=== PATIENT | female | born 1935 | race Caucasian/White ===

== ENCOUNTER 2024-06-20 19:44 | Inpatient (IN) | payer MEDICARE, OTHER ==
[~2024-06-20] VITALS: Ht 157.5 cm; Wt 61.2 kg
[2024-06-20] MEDS ORDERED: ONDANSETRON HCL/PF 4 MG/2 ML VIAL ONE ×2 (20:07→21:05)
[2024-06-20] MEDS: ONDANSETRON HCL/PF 4 MG/2 ML VIAL IVP ONE (20:15)
[2024-06-20] MEDS: IV NS 0.9% 1,000 ML BAG IV ONE ×2 (20:20→22:00)
[2024-06-20 20:33] LABS: BASOPHILS # (AUTO) 0.1 K/uL (0.0-0.2); BASOPHILS % (AUTO) 0.6 % (0.0-2.0); EOSINOPHILS # (AUTO) 0.1 K/uL (0.0-0.7); EOSINOPHILS % (AUTO) 0.8 % (0.0-6.0); HEMATOCRIT 38 % (33-45); LYMPHOCYTES # (AUTO) 4.9 K/uL (0.8-4.8); LYMPHOCYTES % (AUTO) 30.1 % (20.0-44.0); MEAN CORPUSCULAR HEMOGLOBIN 28 PG (26.0-33.0); MEAN CORPUSCULAR HGB CONC 32 g/dl (31.0-36.0); MEAN CORPUSCULAR VOLUME 88 fL (82-100); NEUTROPHILS # (AUTO) 10.2 K/uL (1.8-8.9); NEUTROPHILS % (AUTO) 62.5 % (43.0-81.0); PLATELET COUNT (AUTO) 264 K/uL (150-450); RED BLOOD CELL COUNT(AUTO) 4.27 MIL/uL (4.0-5.2); WHITE BLOOD COUNT (AUTO) 16.4 K/uL (4.3-11.0)
[2024-06-20 20:48] LABS: ALANINE AMINOTRANSFERASE 22 U/L (12-78); ALBUMIN 3.8 g/dL (3.4-5.0); ALKALINE PHOSPHATASE 47 U/L (46-116); ASPARTATE AMINOTRANSFERASE 23 U/L (15-37); BILIRUBIN,TOTAL 0.3 mg/dL (0.2-1.0); CALCIUM, SERUM 9.6 mg/dL (8.5-10.1); CARBON DIOXIDE 23 mmol/L (21-32); CHLORIDE 98 mmol/L (98-107); CREATININE 1.5 mg/dL (0.6-1.3); GLUCOSE 192 mg/dL (74-106); POTASSIUM 3.5 mmol/L (3.5-5.1); SODIUM SERUM 137 mmol/L (136-145); TOTAL PROTEIN, SERUM 7.3 g/dL (6.4-8.2); UREA NITROGEN, BLOOD 24 mg/dL (7-18)
[2024-06-20 20:55] LABS: LACTIC ACID 8.6 mmol/L (0.4-2.0)
[2024-06-20 20:57] LABS: INR 1.07 (0.91-1.10); PARTIAL THROMBOPLASTIN TIME 23.3 SEC (24.3-34.3)
[2024-06-20] MEDS: ONDANSETRON HCL/PF - ER 4 MG/2 ML VIAL IV ONE (21:05)
[2024-06-20] MEDS ORDERED: PIPERACI/TAZO 3.375GM/D5W 50ML PB IV ONE (21:22)
[2024-06-20] MEDS: PIPERACILLIN /TAZOBACTAM 3.375 G in IV D5W 50 ML IV ONE (21:30)
[2024-06-20] MEDS ORDERED: MAGNESIUM HYDROXIDE 30 ML UDC PO PRN (22:00)
[2024-06-20] MEDS ORDERED: MAG HYDROX/AL HYDROX/SIMETH 30 ML UDC PO PRN (22:00)
[2024-06-20] MEDS ORDERED: ONDANSETRON HCL/PF 4 MG/2 ML VIAL IVP PRN (22:00)
[2024-06-20] MEDS ORDERED: Z GUARD REMEDY 4 OZ OINT TP PRN (22:00)
[2024-06-20 23:00] VITALS: BP 154/70; TEMP 97.5
[2024-06-20] MEDS ORDERED: CEFTRIAXONE 1GM BAG (ER ONLY) 50 ML IV ONE (23:28)
[2024-06-20] MEDS ORDERED: DEXTROSE 50%-WATER 50 ML DISP.SYRIN IV PRN (23:30)
[2024-06-20] MEDS: CEFTRIAXONE 1 G in IV D5W 50 ML IV SCH (23:32)
[2024-06-20] MEDS: IV NS 0.9% 1,000 ML IV SCH (23:32)
[2024-06-21] MEDS ORDERED: AZITHROMYCIN 500 MG VIAL ONE (00:07)
[2024-06-21] MEDS ORDERED: LEVETIRACETAM (500MG) 500 MG/5 ML VIAL IV ONE (00:08)
[2024-06-21] MEDS: AZITHROMYCIN 500 MG in IV D5W 250 ML IV SCH (01:00)
[2024-06-21] MEDS: ACETAMINOPHEN 325 MG TABLET PO PRN (01:07)
[2024-06-21] MEDS: LEVETIRACETAM (500MG) 1,000 MG in PREMIX 90 EA IV SCH (02:17)
[2024-06-21 04:00] VITALS: BP 94/77; TEMP 99; O2SAT 94
[2024-06-21] MEDS ORDERED: PIPERACILLIN /TAZOBACTAM 3.375 G in IV D5W 50 ML IV SCH (05:00)
[2024-06-21 07:41] LABS: APPEARANCE,URINE CLEAR (CLEAR); BILIRUBIN,URINE NEGATIVE (NEGATIVE); BLOOD, URINE 3+ Ery/uL (NEGATIVE); COLOR,URINE YELLOW (YELLOW); KETONES,URINE TRACE mg/dL (NEGATIVE); LEUKOCYTE ESTERASE ,URINE NEGATIVE (NEGATIVE); NITRITE, URINE POSITIVE (NEGATIVE); PH,URINE 5.5 (5.0-8.0); PROTEIN,URINE NEGATIVE (NEGATIVE); UGLUCOSE NEGATIVE (NEGATIVE); UROBILINOGEN,URINE 0.2 EU/dL (0.2)
[2024-06-21 08:00] VITALS: BP 104/54; TEMP 101.1; O2SAT 91
[2024-06-21 08:01] LABS: ADD URINE CULTURE YES; BACTERIA,URINE Moderate /HPF (None Seen); RBC,URINE 0-2 /HPF (0-2); SQUAMOUS EPITHELIAL CELL,UR Few /HPF (None Seen); URIC ACID CRYSTALS,URINE Moderate /HPF (None Seen); WBC,URINE 0-2 /HPF (0-3)
[2024-06-21] MEDS: BLOOD SUGAR DIAGNOSTIC 1 EACH STRIP IN SCH (08:05)
[2024-06-21] MEDS: INSULIN REGULAR, HUMAN 100 UNIT/ML 3 ML VIAL SQ PRN (08:06)
[2024-06-21] MEDS: PANTOPRAZOLE 40 MG VIAL IV SCH (08:56)
[2024-06-21] MEDS ORDERED: ASPI-1420 PO (09:59)
[2024-06-21] MEDS ORDERED: METF-442 PO (09:59)
[2024-06-21] MEDS ORDERED: VALS1TAB6 PO (09:59)
[2024-06-21] MEDS ORDERED: SIMV-46 PO (09:59)
[2024-06-21] MEDS ORDERED: ALEN70TA80 PO (09:59)
[2024-06-21] MEDS ORDERED: ERGO500093 PO (09:59)
[2024-06-21 12:00] VITALS: BP 97/48; TEMP 98.8; O2SAT 95
[2024-06-21 16:00] VITALS: O2SAT 100
[2024-06-21 16:04] LABS: BASOPHILS % (AUTO) 0.5 % (0.0-2.0); EOSINOPHILS % (AUTO) 0.1 % (0.0-6.0); HEMATOCRIT 30 % (33-45); HEMOGLOBIN 10.2 g/dL (11.5-14.8); LYMPHOCYTES # (AUTO) 0.3 K/uL (0.8-4.8); LYMPHOCYTES % (AUTO) 4.9 % (20.0-44.0); MEAN CORPUSCULAR HEMOGLOBIN 29 PG (26.0-33.0); MEAN CORPUSCULAR HGB CONC 34 g/dl (31.0-36.0); MEAN CORPUSCULAR VOLUME 85 fL (82-100); MONOCYTES # (AUTO) 0.3 K/uL (0.1-1.30); MONOCYTES % (AUTO) 4.8 % (2.0-12.0); NEUTROPHILS # (AUTO) 5.7 K/uL (1.8-8.9); NEUTROPHILS % (AUTO) 89.7 % (43.0-81.0); PLATELET COUNT (AUTO) 193 K/uL (150-450); RED BLOOD CELL COUNT(AUTO) 3.57 MIL/uL (4.0-5.2); RED CELL DISTRIBUTION WIDTH 14.7 % (11.5-15.0); WHITE BLOOD COUNT (AUTO) 6.4 K/uL (4.3-11.0)
[2024-06-21 16:06] VITALS: BP 101/48; TEMP 97.7; O2SAT 100
[2024-06-21 16:15] LABS: CALCIUM, SERUM 8.1 mg/dL (8.5-10.1); CREATININE 1.3 mg/dL (0.6-1.3); PHOSPHORUS 3.6 mg/dL (2.5-4.9); POTASSIUM 4.1 mmol/L (3.5-5.1)
[2024-06-21 16:24] LABS: THYROID STIMULATING HORMONE 0.71 uIU/mL (0.358-3.74)
[2024-06-21 16:42] LABS: CALCIUM, SERUM 8.2 mg/dL (8.5-10.1)
[2024-06-21 16:45] LABS: MAGNESIUM 1.1 mg/dL (1.8-2.4)
[2024-06-21] MEDS: PROSOURCE / PROSTAT (PYXIS) 30 ML UDC PO SCH (17:33)
[2024-06-21] MEDS: GLUCERNA SHAKE 237 ML CAN PO SCH (17:33)
[2024-06-21] MEDS: Magnesium 1GM/D5W 100ML PREMIX 100 ML IV SCH (17:45)
[2024-06-21 20:00] VITALS: BP 105/52; TEMP 99.5; O2SAT 100
[2024-06-21] MEDS: HEPARIN SODIUM, PORCINE 5000 UNITS/1 ML VIAL SQ SCH (21:04)
[2024-06-21] MEDS: LEVETIRACETAM (250 MG) 250 MG TABLET PO SCH (21:05)
[2024-06-22] VITALS: BP 105/53; TEMP 97.5; O2SAT 100
[2024-06-22 04:20] VITALS: BP 98/51; TEMP 99.8; O2SAT 100
[2024-06-22 07:39] LABS: BASOPHILS % (AUTO) 0.7 % (0.0-2.0); EOSINOPHILS % (AUTO) 0.3 % (0.0-6.0); HEMATOCRIT 31 % (33-45); HEMOGLOBIN 10.1 g/dL (11.5-14.8); LYMPHOCYTES % (AUTO) 14.1 % (20.0-44.0); MEAN CORPUSCULAR HEMOGLOBIN 28 PG (26.0-33.0); MEAN CORPUSCULAR HGB CONC 33 g/dl (31.0-36.0); MEAN CORPUSCULAR VOLUME 86 fL (82-100); MONOCYTES # (AUTO) 0.7 K/uL (0.1-1.30); MONOCYTES % (AUTO) 10.1 % (2.0-12.0); NEUTROPHILS # (AUTO) 5.1 K/uL (1.8-8.9); NEUTROPHILS % (AUTO) 74.8 % (43.0-81.0); PLATELET COUNT (AUTO) 191 K/uL (150-450); RED BLOOD CELL COUNT(AUTO) 3.56 MIL/uL (4.0-5.2); RED CELL DISTRIBUTION WIDTH 14.5 % (11.5-15.0); WHITE BLOOD COUNT (AUTO) 6.8 K/uL (4.3-11.0)
[2024-06-22 08:00] VITALS: BP 114/62; TEMP 98.3; O2SAT 100
[2024-06-22 08:33] LABS: BILIRUBIN,TOTAL 0.2 mg/dL (0.2-1.0); CALCIUM, SERUM 8.1 mg/dL (8.5-10.1); CREATININE 1.2 mg/dL (0.6-1.3); MAGNESIUM 1.6 mg/dL (1.8-2.4); PHOSPHORUS 3.1 mg/dL (2.5-4.9); POTASSIUM 3.9 mmol/L (3.5-5.1); TOTAL PROTEIN, SERUM 6.1 g/dL (6.4-8.2)
[2024-06-22] MEDS: LEVETIRACETAM (250 MG) 250 MG TABLET PO SCH (10:30)
[2024-06-22 11:07] LABS: FOLIC ACID 14.8 ng/mL (>3.0)
[2024-06-22] MEDS: MAGNESIUM OXIDE 400 MG TABLET PO ONE (11:53)
[2024-06-22 12:00] VITALS: BP 125/76; TEMP 98.5; O2SAT 99
[2024-06-22] MEDS ORDERED: CIPR250T4 PO (14:23)
[2024-06-22] MEDS ORDERED: LEVE250T2 PO (14:23)
[2024-06-22 14:24] LABS: HIV-1 p24 ANTIGEN NON REACTIVE (NONREACTIVE); HIV-1/2 ANTIBODY NON REACTIVE (NONREACTIVE)
[2024-06-23] MEDS ORDERED: ASPIRIN EC 81 MG TABLET.DR PO SCH (09:00)
[2024-06-23] MEDS ORDERED: ALENDRONATE 70 MG TABLET PO SCH (09:00)
[2024-06-23] MEDS ORDERED: SIMVASTATIN 20 MG TABLET PO SCH (09:00)
[2024-06-23] MEDS ORDERED: PANTOPRAZOLE 40 MG TABLET.DR PO SCH (09:00)
[2024-06-23 09:07] LABS: PTH, INTACT 26 pg/mL (15-65)
[2024-06-23] MEDS ORDERED: ERGOCALCIFEROL (VITAMIN D 2) 50,000 UNIT CAPSULE PO SCH (10:00)
[2024-06-23] MEDS ORDERED: CIPR500T5 PO (13:59)
[2024-06-26 05:09] LABS: *SPE A/G RATIO 1.1 (0.7-1.7); *SPE ALBUMIN 2.9 g/dL (2.9-4.4); *SPE ALPHA-1-GLOBULIN 0.3 g/dL (0.0-0.4); *SPE ALPHA-2-GLOBULIN 0.8 g/dL (0.4-1.0); *SPE BETA GLOBULIN 0.9 g/dL (0.7-1.3); *SPE GLOBULIN, TOTAL 2.7 g/dL (2.2-3.9); *SPE M-SPIKE Not Observed g/dL (Not Observed); *SPE PROTEIN TOTAL 5.6 g/dL (6.0-8.5); *SPEGAMMA GLOBULIN 0.8 g/dL (0.4-1.8)
== END 2024-06-22 15:40 | disposition home health service (06) | DRG 871 ==
LOC: ER 19:46 → TELE-TD 22:23 → TELE1 06-21 12:35
PROVIDERS: ATTEND Nurse Practitioner Family
DX: A41.9 Sepsis, unspecified organism (principal); G93.41 Metabolic encephalopathy; E87.20 Acidosis, unspecified; S22.43XA Multiple fractures of ribs, bilateral, initial encounter for closed fracture; N17.9 Acute kidney failure, unspecified; J21.9 Acute bronchiolitis, unspecified; J44.0 Chronic obstructive pulmonary disease with (acute) lower respiratory infection; E44.1 Mild protein-calorie malnutrition; N39.0 Urinary tract infection, site not specified; G90.89 Other disorders of autonomic nervous system; E88.09 Other disorders of plasma-protein metabolism, not elsewhere classified; R56.9 Unspecified convulsions; I12.9 Hypertensive chronic kidney disease with stage 1 through stage 4 chronic kidney disease, or unspecified chronic kidney disease; N18.9 Chronic kidney disease, unspecified; R65.20 Severe sepsis without septic shock; E78.5 Hyperlipidemia, unspecified; F01.A0 Vascular dementia, mild, without behavioral disturbance, psychotic disturbance, mood disturbance, and anxiety; I10 Essential (primary) hypertension; M89.8X9 Other specified disorders of bone, unspecified site; E11.22 Type 2 diabetes mellitus with diabetic chronic kidney disease; E86.9 Volume depletion, unspecified; X58.XXXA Exposure to other specified factors, initial encounter; Y93.9 Activity, unspecified; Y92.009 Unspecified place in unspecified non-institutional (private) residence as the place of occurrence of the external cause; B96.1 Klebsiella pneumoniae [K. pneumoniae] as the cause of diseases classified elsewhere
CPT/HCPCS: 36415; 70450-TC; 71045-TC; 71250-TC; 76770-TC; 80048-TC; 80053-TC; 80076-TC; 81001; 82310-TC; 82550-TC; 82607-TC; 82962-TC; 83605-TC; 83735-TC; 83921; 83970; 84100-TC; 84155; 84165; 84425; 84443-TC; 84484-TC; 85025-TC; 85730-TC; 86480; 87040-TC; 87086-TC; 87806; 93307-TC; 93880-TC; 94762-TC; 94799-TC; 97110-TC; 97116-TC; 97530-TC; A4216; A4223; G0378; J0456; J0696; J1644; J1815; J1953; J2405; J2470; J2543; J3475; J7030; J7040; J7060